=== PATIENT | male | born 1960 | race Caucasian/White ===

== ENCOUNTER 2023-09-15 14:17 | Emergency (ER) | payer BC, SELFPAY ==
[2023-09-15 14:18] VITALS: BP 108/74
--- NOTE | 2023-09-15 14:39 | ED.GENMED ---
History of Present Illness
General
Chief Complaint: Abdominal Symptoms
Source: patient and spouse
Exam Limitations: none
Time Seen by Provider: 09/15/23 14:37
Nursing documentation reviewed up to this point in time: agreed with
Travel History
Have you had any contact with someone who has COVID-19?: No
Do you have any symptoms of coronavirus? Fever > 100 degrees, chills, cough, shortness of breath, sore throat, loss of taste or smell, muscle aches, or headache?: No
History of Present Illness
History of Present Illness:
62-year-old male with history of CAD, HTN, GERD, hypothyroid presents stating sudden onset of extreme chills, sweating, liquid diarrheal stools since midnight last night. He had 12-14 large watery nonbloody stools, intermittent abdominal pain but
not necessarily related to the stools.
Went to Urgent care prior to arrival, had neg Flu test, tested neg for Covid at home today.
He returned from a 10-day cruise in [facility] on 08/31, during that time he had a significant sinus infection and was on antibiotic but not sure which one. Sinus problem is resolved
[facility] and had a small amount of macaroni salad and potato salad, hamburger and salad greens/peppers.
Past History
Past History
ED Past Medical History: HTN, Hypothyroidism and Other (BPH with chronic intermittent poor urine stream)
ED Past Surgical History: Other (hernia repair)
Social History
Tobacco: Non-smoker
Alcohol: None
Drug: None
Personal:
Living: with family
Employment: Employed
Review of Systems
Review of Systems
Allergies reviewed?: Yes
All Other Systems: ROS reviewed and negative except as documented in HPI and ROS
Constitutional: Reports fever and chills
EENT: Denies sore throat
Respiratory: Denies trouble breathing
Cardiac: Reports diaphoresis; Denies chest pain
ABD/GI: Reports abdominal pain and diarrhea; Denies nausea, vomiting, bloody stools or black stools
: Reports difficulty voiding (chronic w BPH); Denies dysuria or frequency
Skin: Reports no symptoms
Neurological: Reports headache (mild frontal); Denies dizzy, weakness or numbness
Phy Exam
Physical Exam
Physical Exam:
GENERAL: No acute distress. A&Ox3.
CONSTITUTIONAL: Temp[ 100.5 po
EYES: PERRL, conjunctivae normal
Neck: Supple
ENMT: moist mucus membranes, Pharynx nl
RESPIRATORY: Regular respirations, nonlabored, lungs clear.
CARDIOVASCULAR: Regular rate and rhythm, no murmurs, no rubs.
GI: Soft, nontender, normal BS
MUSCULOSKELETAL: Moves with ease. Well perfused.
SKIN: Warm, dry, pink
PSYCH: Normal mood and affect. Well kept, interactive and appropriate
NEUROLOGIC: Awake, alert and oriented. No focal neurological deficits
Course
Orders/Labs/Results
Orders:
Orders
09/15/23 14:54
0.9% Sodium Chloride 1000 ml [Nss] 1,000 ml IV BOLUS
09/15/23 15:00
Complete Blood Count/With Diff Urgent
Comprehensive Metabolic Panel Urgent
Lactic Acid Urgent
Blood Culture Q30M
IVIS Source: Blood/Venous
Specimen Description:
09/15/23 15:15
Blood Culture Q30M
IVIS Source: Blood/Venous
Specimen Description:
09/15/23 16:32
LevoFLOXacin 500 MG/100 ML [Levaquin] 500 mg in 100 ml IV NOW
MetroNIDAZOLE 500 MG/100 ML [Flagyl 500 mg] 100 ml IV NOW
09/15/23 16:37
CT Abd/Pel (IV only)-DH only Urgent
Comment:
Reason For Exam: diarrhea, elevated lactic
09/15/23 16:58
Urinalysis Reflex To Culture Urgent
Date Specimen was Collected: 09/15/23
Time Specimen was Collected: 16:54
Urine Microscopic Reflex Cult Urgent
STOOL [C difficile Antigen & Toxins] Urgent
IVIS Source: Feces/Stool
Specimen Description:
Date Specimen was Collected: 09/15/23
Time Specimen was Collected: 16:55
Stool Culture Urgent
IVIS Source: Feces/Stool
Specimen Description:
Date Specimen was Collected: 09/15/23
Time Specimen was Collected: 16:55
Abnormal Lab Results
09/15/23 09/15/23
15:00 16:58
WBC 14.5 H 10^3/uL
(4.8-10.8)
MCH 32.1 H pg
(27.0-31.0)
Abs Immat Gran (auto) 0.1 H 10^3/uL
(0-0.05)
Absolute Neuts (auto) 12.8 H 10^3/uL
(1.4-6.5)
Absolute Lymphs (auto) 0.4 L 10^3/uL
(1.2-3.4)
Absolute Monos (auto) 1.2 H 10^3/uL
(0.1-0.6)
Neutrophils % 88.5 H %
(42.2-75.2)
Lymphocytes % 2.5 L %
(20.5-51.1)
BUN 22 H mg/dl
(9-20)
Glucose 123 H mg/dl
(70-99)
Lactic Acid 2.6 H mmol/L
(0.7-2.0)
Alkaline Phosphatase 34 L U/L
(38-126)
Urine Ketones Trace A
(Negative)
Leukocyte Esterase Rfl Trace A
(Negative)
09/15/23 15:00
09/15/23 15:00
Vital Signs
Initial and Last Documented VS:
Initial Vital Signs
Temp Pulse Resp BP Pulse Ox
99.5 F 103 20 108/74 97
09/15/23 14:18 09/15/23 14:18 09/15/23 14:18 09/15/23 14:18 09/15/23 14:18
Last Documented Vital Signs
Temp Pulse Resp BP Pulse Ox
99.5 F 81 16 107/72 99
09/15/23 14:18 09/15/23 18:58 09/15/23 18:58 09/15/23 18:58 09/15/23 18:58
MDM/Problems Addressed
Differential Diagnosis Includes:
food poisoning, c-diff, colitis
MDM/Problems Addressed:
62-year-old male with history of CAD, HTN, GERD, hypothyroid presents stating sudden onset of extreme chills, sweating, liquid diarrheal stools since midnight last night. He had 12-14 large watery nonbloody stools, intermittent abdominal pain but
not necessarily related to the stools.
Went to Urgent care prior to arrival, had neg Flu test, tested neg for Covid at home today.
He returned from a 10-day cruise in [facility] on 08/31, during that time he had a significant sinus infection and was on antibiotic but not sure which one. Sinus problem is resolved
[facility] and had a small amount of macaroni salad and potato salad, hamburger and salad greens/peppers.
4:30 PM
CBC: WBC 14.5 with elevated neutrophils
CMP: No clinically significant abnormality
Lactic mildly elevated at 2.6
Blood cultures pending
Stool cultures pending
With elevated WBC, mild Lactic elevation, recent antibiotic use, gave Flagyl and Levaquin
6:[address] abdomen pelvis with IV only contrast radiology report read: IMPRESSION:
There is no evidence of acute pathology in the abdomen or pelvis.
Imaging for bowel pathology is limited by the lack of enteric contrast
There is 2 cm hepatic cyst
Stool negative for C. difficile
UA negative
Pt is comfortable going home
Plan: D/C home, Augmentin 875 mg BID x 5 days, rest of stool cultures pending
Return instructions discussed
*Critical Care Note
Total Time (30-74mins, 75-104mins- exclusive of procedures): Not Applicable
ED Attending Note
-
Portions of this chart may have been created with voice recognition software.� Occasional wrong word or��sound alike� substitutions may have occurred due to the inherent limitations of voice recognition software.
Discharge Plan
Departure
Patient Disposition: Home (Routine Discharge)
Date of Disposition: 09/15/23
Time of Disposition: 18:37
Patient with high blood pressure during this ER visit?: No
Condition: Good
Discharge Problem:
Diarrhea in adult patient
Instructions: Diarrhea in teens and adults, Dehydration, Adult (DC)
Prescriptions:
New
amoxicillin-pot clavulanate 875-125 mg tablet
1 tab PO BID Qty: 10 0RF
No Action
aspirin 81 MG tablet,delayed release (DR/EC)
81 mg PO HS
levothyroxine 100 MCG tablet
100 mcg PO DAILY AT 0700
tamsulosin 0.4 MG capsule
0.4 mg PO HS
omeprazole magnesium [Prilosec OTC] 20 MG tablet,delayed release (DR/EC)
20 mg PO DAILY Qty: 1 0RF
diltiazem HCl 180 mg Capsule,Extended Release 24 Hr
180 mg PO DAILY
ibuprofen [Advil] 200 mg Tablet
200 mg PO Q6HPRN PRN (Reason: mild pain)
tadalafil 10 mg Tablet
10 mg PO DAILYPRN PRN (Reason: ED)
Advil Sinus Congestion-Pain 200-10 mg Tablet
1 tab PO Q4HPRN PRN (Reason: mild pain)
losartan-hydrochlorothiazide 100-25 mg Tablet
1 tab PO DAILY
Referrals:
Gonzalo Singh MD [Family Provider] - Follow up in 5-7 days
Activity Restrictions/Additional Instructions:
As we discussed, drink plenty of fluids to avoid dehydration
Return here over the weekend for fever, chills, worsening abdominal pain, worsening diarrhea or bloody diarrhea or feeling sicker in any way.
No Lomotil or other antidiarrheal since until the rest of your stool culture is back
I sent a prescription to your pharmacy for Augmentin to take twice a day for 5 days. You may start it tonight.
Interventions
Interventions:
*Risk Screen - Suicide Last Done: 09/15/23 14:18
*General Assessment Last Done: 09/15/23 14:18
*Neglect/Abuse Screening Last Done: 09/15/23 14:18
ED- Fall Risk Assessment Last Done: 09/15/23 18:58
*ED COVID-19 Vaccine History Last Done: 09/15/23 14:37
*Nursing Disposition Last Done: 09/15/23 18:58
ID-Legvjc-Tvnepxqoeo Assessment Last Done: 09/15/23 14:45
Discharge Date and Time
Discharge Date/Time: 09/15/23 18:59
Print Language: PORTUGUESE
[2023-09-15 14:42] VITALS: BP 121/73
[2023-09-15 14:45] VITALS: BMI 36.2
[2023-09-15 15:00] VITALS: BP 130/74
[2023-09-15] MEDS: NSS 1000 IV (15:06)
[2023-09-15 15:19] LABS: % Basophils 0.2 % (0-2); % Immature Granulocytes 0.5 % (0-0.5); % Lymphocytes 2.5 % (20.5-51.1); % Monocytes 8.3 % (1.7-9.3); % Neutrophils 88.5 % (42.2-75.2); Absolute Immature Granulocytes 0.1 10^3/uL (0-0.05); Absolute Lymphocytes 0.4 10^3/uL (1.2-3.4); Absolute Monocytes 1.2 10^3/uL (0.1-0.6); Absolute Neutrophils 12.8 10^3/uL (1.4-6.5); Hematocrit 46.7 % (39.0-52.0); Hemoglobin 16.3 g/dL (13.0-18.0); Mean Corp Hgb Conc. 34.9 g/dL (33.0-37.0); Mean Corpuscular Hgb 32.1 pg (27.0-31.0); Mean Corpuscular Volume 92.1 fL (80.0-94.0); Nucleated Red Blood Cells % 0 % (-); Platelet Count 197 10^3/uL (130-400); Red Blood Cell Count 5.07 10^6/uL (4.70-6.10); White Blood Cell Count 14.5 10^3/uL (4.8-10.8)
[2023-09-15 15:36] LABS: ALT (SGPT) 27 U/L (0-50); AST (SGOT) 29 U/L (17-59); Albumin 4.5 g/dl (3.5-5.0); Alkaline Phosphatase 34 U/L (38-126); Blood Urea Nitrogen 22 mg/dl (9-20); Calcium 9.3 mg/dl (8.4-10.2); Carbon Dioxide 25 mmol/L (22-30); Chloride 98 mmol/L (98-107); Estimated Creatinine Clearance 82 ml/min; Glucose 123 mg/dl (70-99); Lactic Acid 2.6 mmol/L (0.7-2.0); Potassium 3.9 mmol/L (3.5-5.1); Sodium 137 mmol/L (135-145); Total Bilirubin 0.8 mg/dl (0.2-1.3); Total Protein 6.9 g/dl (6.3-8.2); eGFR > 60.00
[2023-09-15 16:00] VITALS: BP 136/78
[2023-09-15] MEDS: FLAGYL 500 MG 100 IV (16:55)
[2023-09-15 17:38] VITALS: BP 126/75
[2023-09-15] MEDS: LEVAQUIN 100 IV (17:46)
[2023-09-15 17:54] LABS: Urine Albumin Trace (Neg - Trace); Urine Bilirubin Negative (Negative); Urine Character Clear (Clear); Urine Color Yellow; Urine Glucose Negative (Negative); Urine Ketone Trace (Negative); Urine Leukocyte Trace (Negative); Urine Nitrite Negative (Negative); Urine Occult Blood Negative (Negative); Urine Specific Gravity 1.015 (<1.030); Urine Urobilinogen Negative (Neg - 1+)
[2023-09-15 18:07] LABS: Urine Red Blood Cell 0-2 /HPF (0-2); Urine White Cell 0-2 /HPF (0-5)
[2023-09-15 18:58] VITALS: BP 107/72
== END 2023-09-15 18:59 | disposition home or self-care (01) ==
LOC: EMR 14:17
PROVIDERS: Registered Nurse; EMERGENCY PHYSICIAN Emergency Medicine; FAMILY PHYSICIAN Internal Medicine
DX: R19.7 Diarrhea, unspecified (principal); I25.10 Atherosclerotic heart disease of native coronary artery without angina pectoris; I10 Essential (primary) hypertension; K21.9 Gastro-esophageal reflux disease without esophagitis; E03.9 Hypothyroidism, unspecified
CPT/HCPCS: 99285; 96374; 96375; 96361; 74177; 80053; 81003; 81015; 83605; 85025; 87040; 87045; 87046; 87324; 87427; 87449; Q9967

== ENCOUNTER 2024-04-30 06:25 | Day surgery (SDC) | payer BC, SELFPAY | END 2024-04-30 12:00 | disposition home or self-care (01) | LOC: GI 06:25 | PROVIDERS: ATTENDING PHYSICIAN Internal Medicine | DX: Z12.11 Encounter for screening for malignant neoplasm of colon (principal); D12.4 Benign neoplasm of descending colon; K55.20 Angiodysplasia of colon without hemorrhage; K57.30 Diverticulosis of large intestine without perforation or abscess without bleeding; K64.8 Other hemorrhoids; Z80.0 Family history of malignant neoplasm of digestive organs | CPT/HCPCS: 45385; 88305 ==

== ENCOUNTER → 2025-02-28 16:58 | Outpatient (REF) | payer MEDICARE, SELFPAY | LOC: PAVMRI 16:58 | PROVIDERS: ATTENDING PHYSICIAN Specialist; FAMILY PHYSICIAN Internal Medicine | DX: M25.562 Pain in left knee (principal) | CPT/HCPCS: 73721 ==